=== PATIENT | female | born 1970 | race Caucasian/White ===

== ENCOUNTER → 2020-06-22 | Outpatient (CLI) | payer BC, OTHER ==
[~2020-06-22] VITALS: Ht 152.4 cm; Wt 94.2 kg
[~2020-06-22] MED LIST: BIOCLEANSE PO; LIQUIFILM TEARS15 ML OS; PLEXUS PO; PREDNISONE20 MG PO; PRINZIDE 12.5 M1 TAB PO; PROZAC 20MG20 MG PO; [UNRECOGNIZED DRUG - OTHER] PO
[2020-06-22 07:16] VITALS: BP 122/72; PULSE 80
[2020-06-22 09:20] VITALS: BP 122/72; PULSE 80
== END ==
LOC: COL.RAD 06:42
DX: M54.42 Lumbago with sciatica, left side (principal)
CPT/HCPCS: J3301

== ENCOUNTER → 2020-07-23 | Outpatient (CLI) | payer BC, OTHER ==
[~2020-07-23] VITALS: Ht 152.4 cm; Wt 93.2 kg
[2020-07-23 13:00] VITALS: BP 114/69; PULSE 70
[2020-07-23 13:54] VITALS: BP 123/74; PULSE 63
== END ==
LOC: COL.RAD 12:25
DX: M54.42 Lumbago with sciatica, left side (principal)
CPT/HCPCS: J3301

== ENCOUNTER 2020-11-30 10:32 | Emergency (ER) | payer BC, OTHER ==
[~2020-11-30] VITALS: Ht 152.4 cm; Wt 94.5 kg
[~2020-11-30 10:32] MED LIST changes: -LIQUIFILM TEARS15 ML OS; -PREDNISONE20 MG PO
[2020-11-30 10:42] VITALS: BP 124/79; TEMP 98.2
[2020-11-30] MEDS ORDERED: PREDNISONE20 MG PO (11:08)
[2020-11-30] MEDS ORDERED: LIQUIFILM TEARS15 ML OS (11:09)
[2020-11-30 11:20] VITALS: PULSE 67
== END 2020-11-30 11:20 | disposition home or self-care (01) ==
LOC: COL.ER 10:32
DX: G51.0 Bell's palsy (principal); I10 Essential (primary) hypertension; J45.909 Unspecified asthma, uncomplicated; Z79.899 Other long term (current) drug therapy

== ENCOUNTER → 2023-10-08 | Outpatient (CLI) | payer BC ==
[~2023-10-08] VITALS: Ht 152.4 cm; Wt 79.0 kg
[~2023-10-08] MED LIST changes: +LIQUIFILM TEARS15 ML OS; +MOBIC15 MG PO; +MULTI VITAMINS1 TAB PO; +NEURONTIN300 MG/CAP PO; +PREDNISONE20 MG PO; +PRO OMEGA; +TYLENOL 8 HR PO; +Triamcinolone 40 MG/ML 1 ML VIAL IJ SCH; +VTAMINC250TA; +WELLBUTRIN XL150 MG PO; +[UNRECOGNIZED DRUG - OTHER]
[2023-10-08 07:17] VITALS: BP 111/76; PULSE 61; TEMP 97.4
[2023-10-08 07:55] VITALS: BP 130/89; PULSE 60
--- NOTE | 2023-10-08 09:00 | NUR ---
AT 0810, ALBERTO COMPLETED HER RECOVERY PERIOD. PATIENT IS ABLE TO WALK WITHOUT ISSUE OR ASSISTANCE AND DENIES ANY PAIN, TINGLING, OR NUMBNESS. PATIENT FINISHED HER JUICE AND MUFFIN WITHOUT ANY ISSUES. BANDAGE IS CLEAN, DRY, AND INTACT. ESCORTED PATIENT TO PATIENT ENTRANCE VIA WHEELCHAIR WITH ALL OF HER BELONGINGS. PATIENT ABLE TO GET INTO THE FRONT PASSENGER SEAT OF HER RIDE WITHOUT ANY ISSUES. ALL NEEDS MET.
== END ==
LOC: COL.RAD 06:36
DX: M51.26 Other intervertebral disc displacement, lumbar region (principal)
CPT/HCPCS: J0665; J3301